=== PATIENT | female | born 1985 | race African-American/Black ===

== ENCOUNTER 2016-12-30 18:16 | Emergency (ER) | payer MEDICAID ==
[~2016-12-30] VITALS: Ht 154.9 cm; Wt 80.0 kg
[2016-12-30 18:27] VITALS: BP 130/79
== END 2016-12-31 01:00 | disposition left against medical advice (07) ==
LOC: ER 18:16
DX: Z53.21 Procedure and treatment not carried out due to patient leaving prior to being seen by health care provider (principal)

== ENCOUNTER 2020-05-17 21:53 | Emergency (ER) | payer MEDICAID ==
[~2020-05-17] VITALS: Ht 144.8 cm; Wt 82.0 kg
[2020-05-17] MEDS ORDERED: MORPHINE SULFATE 4 MG/ML CPJ (NOT FOR IM USE) IV ONE (22:30)
[2020-05-17] MEDS ORDERED: ONDANSETRON HCL 4MG/2ML INJ IV ONE (22:30)
[2020-05-17] MEDS ORDERED: PROPOFOL 200MG/20ML VIAL IV ONE (23:30)
[2020-05-17] MEDS ORDERED: KETAMINE HCL 50 MG/ML 10ML IV ONE (23:30)
[2020-05-18] MEDS ORDERED: HYDROCODONE/ACETAMINOPHEN 5/325MG TABLET PO ONE
[2020-05-18 01:49] VITALS: BP 125/106
== END 2020-05-18 02:48 | disposition home or self-care (01) ==
LOC: ER 21:53
DX: S42.255A Nondisplaced fracture of greater tuberosity of left humerus, initial encounter for closed fracture (principal); S80.212A Abrasion, left knee, initial encounter; F31.9 Bipolar disorder, unspecified; V43.62XA Car passenger injured in collision with other type car in traffic accident, initial encounter; Y93.89 Activity, other specified; Y92.488 Other paved roadways as the place of occurrence of the external cause
CPT/HCPCS: 23650; 71045; 73030; 96374; 96375; 99152; 99285; J2270; J2405; J2704; J3490